=== PATIENT | male | born 1985 | race Caucasian/White ===

== ENCOUNTER 2020-02-07 09:32 | Emergency (ER) | payer OTHER ==
[~2020-02-07] VITALS: Ht 188 cm; Wt 98.0 kg
[2020-02-07 09:50] VITALS: BP 120/75
--- NOTE | 2020-02-07 10:14 | RAD ---
KNEE RIGHT 3V History: Reason: right knee pain after twisting injury last night / Spl. Instructions: / History: Technique: 3 views right knee. Comparison: None. Findings: Normal alignment. No fracture. Minimal knee joint effusion. Anterior knee soft tissue swelling. Minimal patellar spurring. Impression: 1. No acute osseous abnormality. 2. Anterior knee soft tissue swelling. Electronically signed by: Jair Sexton DO (02/07/2020 10:11 AM) [id number]
--- NOTE | 2020-02-07 10:20 | PHYS DOC ---
Past History Past Medical History: Hypertension Past Surgical History: Other Additional Past Surgical Histo: Meniscus repair Alcohol Use: Occasionally General Adult EDM: Chief Complaint: KNEE INJURY HPI: HPI: 34-year-old male presents with right knee pain. The patient slipped as he was getting out of the shower last night and caught himself before hit the ground. He did have a twisting of the right knee. Today, it is swollen and he has lateral pain. Patient has a history of a previous meniscal tear in this knee. The pain is only a 2 out of 10 but he cannot fully straighten the knee due to discomfort. He is able to walk. He has a next 3 days off of work. 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 He denies any other injuries or complaints at this time. Review of Systems: Review of Systems: Constitutional: Denies fever or chills Eyes: Denies change in visual acuity HENT: Denies nasal congestion or sore throat Respiratory: Denies cough or shortness of breath Cardiovascular: Denies chest pain or edema GI: Denies abdominal pain, nausea, vomiting, bloody stools or diarrhea : Denies dysuria Musculoskeletal: Right knee pain Integument: Denies rash Neurologic: Denies headache, focal weakness or sensory changes Endocrine: Denies polyuria or polydipsia Lymphatic: Denies swollen glands Psychiatric: Denies depression or anxiety Heart Score: Risk Factors: Risk Factors: DM, Current or recent (<one month) smoker, HTN, HLP, family history of CAD, obesity. Risk Scores: Score 0 - 3: 2.5% MACE over next 6 weeks - Discharge Home Score 4 - 6: 20.3% MACE over next 6 weeks - Admit for Clinical Observation Score 7 - 10: 72.7% MACE over next 6 weeks - Early Invasive Strategies Physical Exam: PE: Constitutional: Well developed, well nourished, no acute distress, non-toxic appearance. [] HENT: Normocephalic, atraumatic, bilateral external ears normal, oropharynx moist, no oral exudates, nose normal. [] Eyes: PERRLA, EOMI, conjunctiva normal, no discharge. [] Neck: Normal range of motion, no tenderness, supple, no stridor. [] Cardiovascular: Heart rate regular rhythm, no murmur [] Lungs & Thorax: Bilateral breath sounds clear to auscultation [] Abdomen: Bowel sounds normal, soft, no tenderness, no masses, no pulsatile masses. [] Skin: Warm, dry, no erythema, no rash. [] Back: No tenderness, no CVA tenderness. [] Extremities: Right knee with mild prepatellar edema. No bruising or obvious deformity. Unable to fully extend due to swelling. [] Neurologic: Alert and oriented X 3, normal motor function, normal sensory function, no focal deficits noted. [] Psychologic: Affect normal, judgement normal, mood normal. [] Current Patient Data: Vital Signs: Vital Signs Date Time Temp Pulse Resp B/P (MAP) Pulse Ox O2 Delivery O2 Flow Rate FiO2 02/07/20 09:50 98.3 74 16 120/75 (90) 96 Room Air EKG: EKG: [] Radiology/Procedures: Radiology/Procedures: [] Impressions: KNEE RIGHT 3V History: Reason: right knee pain after twisting injury last night / Spl. Instructions: / History: Technique: 3 views right knee. Comparison: None. Findings: Normal alignment. No fracture. Minimal knee joint effusion. Anterior knee soft tissue swelling. Minimal patellar spurring. Impression: 1. No acute osseous abnormality. 2. Anterior knee soft tissue swelling. Electronically signed by: Michel Cartwright DO (02/07/2020 10:11 AM) [id number] DICTATED AND SIGNED BY: MICHEL CARTWRIGHT DO DATE: 02/07/20 1011 CC: BEV WHITE DO; PCP,NO ~ Course & Med Decision Making: Course & Med Decision Making Pertinent Labs and Imaging studies reviewed. (See chart for details) The patient's x-ray is negative for fracture. Based on my exam, I hope the theodore ent just irritated the knee and has a reactive effusion. It is possible that he has meniscal injury based on the mechanism of action. I have advised rest, ice, and compression therapy for the next few days to see if it rapidly improves. If it does not improve, he may need further evaluation by orthopedics and/or an MRI. Patient states verbal understanding. He is stable for dis charge at this time. [] Dragon Disclaimer: Dragon Disclaimer: This electronic medical record was generated, in whole or in part, using a voice recognition dictation system. Departure Departure: Impression: Primary Impression: Right knee pain Qualified Codes: M25.561 - Pain in right knee Disposition: 01 DC HOME SELF CARE/HOMELESS Condition: STABLE Referrals: PCP,NO (PCP) Patient Instructions: Knee Pain, [id number] BEV WHITE DO Feb 07, 2020 10:20
== END 2020-02-07 10:41 | disposition home or self-care (01) ==
LOC: ER 09:32
DX: M25.561 Pain in right knee (principal); R22.41 Localized swelling, mass and lump, right lower limb; I10 Essential (primary) hypertension; X50.9XXA Other and unspecified overexertion or strenuous movements or postures, initial encounter; Y93.89 Activity, other specified; Y92.89 Other specified places as the place of occurrence of the external cause; Y99.8 Other external cause status
CPT/HCPCS: 73562; 99283